=== PATIENT | male | born 1970 | race Two or more races ===

== ENCOUNTER 2025-02-18 18:18 | Emergency (ER) | payer OTHER ==
[~2025-02-18] VITALS: Ht 170.2 cm; Wt 79.4 kg
[2025-02-18] MEDS ORDERED: CLINDAMYCIN PHOSPHATE 150 MG/ML (600mg) IV ONE (19:30)
[2025-02-18] MEDS ORDERED: FAMOTIDINE/PF 20 MG/2 ML VIAL IV ONE (19:30)
[2025-02-18] MEDS ORDERED: CLINDAMYCIN PHOSPHATE 150 MG/ML (300mg) ONE (19:39)
[2025-02-18] MEDS ORDERED: FAMOTIDINE/PF 20 MG/2 ML VIAL ONE (19:40)
[2025-02-18 20:42] LABS: HEMATOCRIT 43.8 % (39.0-48.0); HEMOGLOBIN 14.6 g/dL (13-16.00); MEAN CELL VOLUME 90.2 fL (80.0-100.00); MEAN CORPUSCULAR HGB CONC 33.2 g/dl (32.0-36.0); PLATELET COUNT 291 K/uL (150-450); RED BLOOD COUNT 4.86 M/uL (4.00-6.00); RED CELL DISTRIBUTION WIDTH 13.4 % (11.5-14.5)
[2025-02-18 21:09] LABS: ALBUMIN 4.1 gm/dL (3.4-5.0); BILIRUBIN TOTAL 0.5 mg/dL (0.3-1.2); CALCIUM 9.7 mg/dL (8.5-10.1); CREATININE SERUM 0.9 mg/dL (0.70-1.30); GFR 88.61; POTASSIUM 4.71 mEq/L (3.5-5.1); TOTAL PROTEIN 8.1 gm/dL (6.4-8.2)
[2025-02-18] MEDS ORDERED: CLEOCIN HCL300 MG PO (22:07)
[2025-02-18] MEDS ORDERED: INTESTINEX680 M1 PO (22:07)
[2025-02-18] MEDS ORDERED: ONDANSETRON ODT4 MG PO (22:13)
[2025-02-18] MEDS ORDERED: PEPCID AC20 MG PO (22:13)
== END 2025-02-18 22:29 ==
LOC: ER 18:19
PROVIDERS: Preventive Medicine Public Health & General Preventive Medicine
DX: L02.212 Cutaneous abscess of back [any part, except buttock and flank] (principal)

== ENCOUNTER 2025-05-02 10:42 | Emergency (ER) | payer OTHER ==
[~2025-05-02] VITALS: Ht 170.2 cm; Wt 81.6 kg
[~2025-05-02 10:42] MED LIST: CLEOCIN HCL300 MG PO; INTESTINEX680 M1 PO; ONDANSETRON ODT4 MG PO; PEPCID AC20 MG PO
[2025-05-02 11:46] VITALS: BP 116/69; O2SAT 99
[2025-05-02] MEDS ORDERED: KETOROLAC TROMETHAMINE 60 MG VIAL IM ONE (12:45)
[2025-05-02] MEDS ORDERED: ORPHENADRINE CITRATE 30 MG/ML AMPUL IM ONE (12:45)
[2025-05-02] MEDS ORDERED: NORFLEX100MG PO (13:56)
== END 2025-05-02 14:37 | disposition home or self-care (01) ==
LOC: ER 12:13
DX: M54.2 Cervicalgia (principal); M62.830 Muscle spasm of back; M51.369 Other intervertebral disc degeneration, lumbar region without mention of lumbar back pain or lower extremity pain